=== PATIENT | male | born 1960 | race Caucasian/White ===

== ENCOUNTER 2024-10-07 17:21 | Inpatient (IN) | payer MEDICARE, SELFPAY ==
[2024-10-07] VITALS (26 sets, daily range): BP systolic 84–129; BP diastolic 59–96; BMI 33.5; BMI 33.3
--- NOTE | 2024-10-07 11:41 | ED.GENMED ---
ED Provider Triage
<Hemant Lanza PA-C - Last Filed: 10/07/24 11:45>
-
Patient seen by provider in Triage?: Seen in Triage
Attestation: A medical screening examination has been initiated by a qualified medical provider. Based on the assessment performed at this time, it has been determined that an emergent medical condition may exist and the patient has been informed
that further medical evaluation and possible additional diagnostic testing may be needed.
HPI: 64-year-old male presents to the emergency department for evaluation of shortness of breath for the past 3 days. Reports he has had a dry cough for the past week or more. No fevers or chills. Reports some chest tightness but denies any chest
pain. No leg swelling. Does have orthopnea and dyspnea on exertion.
GENERAL: Alert, clearly in respiratory distress
EYE: No visual abnormalities.
NECK: Trachea midline
ENT: No visible abnormalities.
LUNGS: Tachypneic with expiratory wheezes, no obvious adventitious lung sounds bilaterally
NEUROLOGICAL: Alert and oriented
SKIN: Skin intact. No visible changes.
MUSCULOSKELETAL: Moving extremities normally
PSYCH: Normal and appropriate interaction.
This is a medical evaluation conducted in person to initiate diagnostic evaluation and provide initial therapeutics. Please see further documentation by the treating clinician.
History of Present Illness
<Hemant Lanza PA-C - Last Filed: 10/07/24 11:45>
General
Chief Complaint: Breathing Problem
Time Seen by Provider: 10/07/24 13:34
<Mary Harrington PA-C - Last Filed: 10/07/24 18:07>
General
Source: patient
Exam Limitations: none
History of Present Illness
History of Present Illness:
64yoM with a history of hypertension, hyperlipidemia, and obesity presenting with his for evaluation of shortness of breath. He started with URI symptoms and cough 3-4 days ago. Cough is productive of green sputum. He also has been having
fevers up to 103 at home. was sick with similar symptoms but she is now feeling better after being started on prednisone. He reports increasing shortness of breath since his symptoms began. He was seen by his PCP today and was sent to the ED
for evaluation. He denies any history of asthma although smokes about 1 cigar daily.
Phy Exam
<Mary Harrington PA-C - Last Filed: 10/07/24 18:07>
General Physical Exam
General Presentation: mild distress
General age: appears stated age
General Skin: warm and dry
General Habitus: normal and obese
General Mental: alert
ENT Exam
ENT Exam: normocephalic
Cardiovascular Exam
Cardiovascular Exam: regular rate/rhythm and no edema
Pulmonary Exam
Pulmonary Exam: generalized wheezing and other (Diffuse expiratory wheezes noted with mild tachypnea)
Neurological Exam
Neurological Exam: alert
Stefani Coma Scale
Eye Opening: Spontaneous
Verbal Response: Oriented
Motor Response: Obeys Commands
GCS Total Score: 15
Skin Exam
Skin Exam: normal color and warm/dry
Psychiatric Exam
Psychiatric Exam: normal mood/affect
Scores
<Mary Harrington PA-C - Last Filed: 10/07/24 18:07>
Heart Failure Risk
Heart Failure Risk Score: Not Applicable
Sepsis
<Mary Harrington PA-C - Last Filed: 10/07/24 18:07>
Sepsis Screening
Sepsis Assessment: Sepsis Ruled Out
Sepsis Screen
Sepsis Screen: Sepsis Ruled Out
Date: 10/07/24
Time: 18:01
Course
<Hemant Lanza PA-C - Last Filed: 10/07/24 11:45>
Orders/Labs/Results
Orders:
Orders
10/07/24
Electrocardiogram (*1) Stat
Comment: ALREADY DONE
10/07/24 11:43
Electrocardiogram (*1) Urgent
Reason for Study: Shortness of Breath
EKG- Treatment ONCE
CR Chest - 2 Views Urgent
Comment:
Reason For Exam: SOB
10/07/24 12:02
Complete Blood Count/With Diff Urgent
Comprehensive Metabolic Panel Urgent
Magnesium Urgent
NT-proBNP Urgent
TSH Urgent
Comment: ADD ON
Troponin I Urgent
10/07/24 13:30
COVID-19 Antigen Urgent
Source: Nasal Swab
Influenza A+B Rapid Molecular Urgent
DALE Source: Nasal Swab
Specimen Description:
10/07/24 13:42
0.9% Sodium Chloride 500 ml [Nss] 500 ml IV BOLUS
Ipratropium/Albuterol Sulfate [Duoneb] 3 ml INH R NOW STA
10/07/24 13:52
D-Dimer Urgent
10/07/24 13:57
Adenosine [Adenocard] 6 mg IV NOW STA
10/07/24 13:59
Add On- LAB Urgent
Tests Added?: TSH, magnesium
10/07/24 14:03
Levalbuterol [Xopenex 1.25 mg Inhalant Solution] 1.25 mg INH R NOW STA
10/07/24 14:46
Troponin I Urgent
10/07/24 15:18
CT Chest PE Study Urgent
Comment:
Reason For Exam: SOB, hypoxia, elevated D-dimer
10/07/24 15:19
Magnesium Sulfate 2 Gram/50 ml [Magnesium Sulfate] 2 gram in 50 ml IV NOW
10/07/24 15:27
Oseltamivir Phosphate [Tamiflu] 75 mg PO NOW STA
10/07/24 17:06
Admit/Transfer Patient As Directed
Co-Sign Provider:
Level of Care: Inpatient admission
Assign to:: IVU
Physician / Group: Yi
Diagnosis: Acute influenza, SVT, Hypoxia
Reason for Hospitalization: Oxygen therapy, rate control, steroids
Expected length of stay greater than two midnights?: Yes
ELOS- Estimated Length of Stay in days: 3
I certify the patient meets the requirements for IP care: Yes
PRN Pain Medication Management As Directed
May give lesser potent ordered pain med per pt: Yes
preference::
Protocol:: Medication orders for pain may be administered in a
manner that supports deferring to patient preference
when the pt is:
- Requesting an ordered lesser potent pain medication.
Least to most potent pain medications are defined
as: acetaminophen < NSAID < tramadol < opioids
(morphine, oxycodone, hydromorphone).
- Requesting a lesser dose of the same medication IF
ORDERED.
- Requesting a less intrusive route of administration
if both routes are prescribed by the provider (PO <
IV).
10/07/24 17:07
Code Status As Directed
Resuscitation Status: Full Code
10/07/24 17:11
Dexamethasone Sod Phosphate [Decadron] 10 mg IV NOW STA
Diltiazem HCl [Cardizem] 10 mg IV NOW STA
10/07/24 17:12
0.9% Sodium Chloride 500 ml [Nss] 500 ml IV BOLUS
10/07/24 17:20
Azithromycin 500 mg/250 ml [Zithromax Infusion] 500 mg in 250 ml IV NOW
CefTRIAXone [Rocephin] 1,000 mg IV NOW STA
10/07/24 17:28
0.9% Sodium Chloride 1000 ml [Nss] 1,000 ml IV 100 mls/hr
Acetaminophen [Tylenol] 650 mg PO Q6HPRN PRN
Levalbuterol [Xopenex 0.63 mg Inhalant Solution] 0.63 mg INH R Q6HPRN PRN
10/07/24 17:28
CARDIOLOGY CONSULT Routine
Consulting Provider: Robin Matson
Was physician already notified: Yes
Activity As Directed
Activity Level: Out of Bed- Chair
Xopenex Reason for Use As Directed
Reason for ordering Xopenex instead of Albuterol: tachycardia
Acapella [Rx Pep / Acapela] [RESP] Routine
Incentive Spirometry [Rx Incentive Spirometry] [RESP] Routine
Frequency: q1h while awake
DX Deep Vein Thrombosis Video Routine
10/07/24 18:00
Diltiazem [Cardizem] 30 mg PO QID
Enoxaparin Sodium [Lovenox] 40 mg SC QPM
10/07/24 20:00
Guaifenesin [Mucinex] 600 mg PO Q12
Levalbuterol [Xopenex 0.63 mg Inhalant Solution] 0.63 mg INH R TID
omega 8-[id number]-[id number]-fish oil [Fish Oil] 1 cap PO BID
10/08/24 06:00
CBC/With Diff [Complete Blood Count/With Diff] IN AM
CMP [Comprehensive Metabolic Panel] IN AM
10/08/24 07:00
Dexamethasone Sod Phosphate [Decadron] 4 mg IV Q8H
10/08/24 08:00
Oseltamivir Phosphate [Tamiflu] 75 mg PO BID
Rosuvastatin Calcium [Crestor] 5 mg PO DAILY
10/08/24 18:00
Azithromycin 500 mg/250 ml [Zithromax Infusion] 500 mg in 250 ml IV Q24H
CefTRIAXone [Rocephin] 1,000 mg IV Q24H
Abnormal Lab Results
10/07/24 10/07/24 10/07/24
12:02 13:52 14:46
WBC 11.3 H 10^3/uL
(4.8-10.8)
MPV 11.2 H fL
(7.4-10.4)
Absolute Neuts (auto) 8.9 H 10^3/uL
(1.4-6.5)
Absolute Lymphs (auto) 1.0 L 10^3/uL
(1.2-3.4)
Absolute Monos (auto) 1.4 H 10^3/uL
(0.1-0.6)
Neutrophils % 78.6 H %
(42.2-75.2)
Lymphocytes % 8.6 L %
(20.5-51.1)
Monocytes % 12.1 H %
(1.7-9.3)
D-Dimer 1.58 H ug/mlFEU
(0.00-0.50)
BUN 31 H mg/dl
(9-20)
Creatinine 1.5 H mg/dL
(0.7-1.3)
Glucose 114 H mg/dl
(70-99)
Magnesium 2.5 H mg/dl
(1.6-2.3)
AST 62 H U/L
(17-59)
Troponin I 0.084 H* ng/ml 0.072 H* ng/ml
10/07/24 12:02
10/07/24 12:02
Vital Signs
Initial and Last Documented VS:
Initial Vital Signs
Temp Pulse Resp BP Pulse Ox
98.5 F 91 22 113/67 92
10/07/24 11:38 10/07/24 11:38 10/07/24 11:38 10/07/24 11:38 10/07/24 11:38
Last Documented Vital Signs
Temp Pulse Resp BP Pulse Ox
98.5 F 162 25 112/74 94
10/07/24 11:38 10/07/24 17:55 10/07/24 17:15 10/07/24 17:55 10/07/24 17:15
Breannalt;DELBERT Mendoza Last Filed: 10/07/24 18:07>
Orders/Labs/Results
Orders:
Orders
10/07/24
Electrocardiogram (*1) Stat
Comment: ALREADY DONE
10/07/24 11:43
Electrocardiogram (*1) Urgent
Reason for Study: Shortness of Breath
EKG- Treatment ONCE
CR Chest - 2 Views Urgent
Comment:
Reason For Exam: SOB
10/07/24 12:02
Complete Blood Count/With Diff Urgent
Comprehensive Metabolic Panel Urgent
Magnesium Urgent
NT-proBNP Urgent
TSH Urgent
Comment: ADD ON
Troponin I Urgent
10/07/24 13:30
COVID-19 Antigen Urgent
Source: Nasal Swab
Influenza A+B Rapid Molecular Urgent
DALE Source: Nasal Swab
Specimen Description:
10/07/24 13:42
0.9% Sodium Chloride 500 ml [Nss] 500 ml IV BOLUS
Ipratropium/Albuterol Sulfate [Duoneb] 3 ml INH R NOW STA
10/07/24 13:52
D-Dimer Urgent
10/07/24 13:57
Adenosine [Adenocard] 6 mg IV NOW STA
10/07/24 13:59
Add On- LAB Urgent
Tests Added?: TSH, magnesium
10/07/24 14:03
Levalbuterol [Xopenex 1.25 mg Inhalant Solution] 1.25 mg INH R NOW STA
10/07/24 14:46
Troponin I Urgent
10/07/24 15:18
CT Chest PE Study Urgent
Comment:
Reason For Exam: SOB, hypoxia, elevated D-dimer
10/07/24 15:19
Magnesium Sulfate 2 Gram/50 ml [Magnesium Sulfate] 2 gram in 50 ml IV NOW
10/07/24 15:27
Oseltamivir Phosphate [Tamiflu] 75 mg PO NOW STA
10/07/24 17:06
Admit/Transfer Patient As Directed
Co-Sign Provider:
Level of Care: Inpatient admission
Assign to:: IVU
Physician / Group: Yi
Diagnosis: Acute influenza, SVT, Hypoxia
Reason for Hospitalization: Oxygen therapy, rate control, steroids
Expected length of stay greater than two midnights?: Yes
ELOS- Estimated Length of Stay in days: 3
I certify the patient meets the requirements for IP care: Yes
PRN Pain Medication Management As Directed
May give lesser potent ordered pain med per pt: Yes
preference::
Protocol:: Medication orders for pain may be administered in a
manner that supports deferring to patient preference
when the pt is:
- Requesting an ordered lesser potent pain medication.
Least to most potent pain medications are defined
as: acetaminophen < NSAID < tramadol < opioids
(morphine, oxycodone, hydromorphone).
- Requesting a lesser dose of the same medication IF
ORDERED.
- Requesting a less intrusive route of administration
if both routes are prescribed by the provider (PO <
IV).
10/07/24 17:07
Code Status As Directed
Resuscitation Status: Full Code
10/07/24 17:11
Dexamethasone Sod Phosphate [Decadron] 10 mg IV NOW STA
Diltiazem HCl [Cardizem] 10 mg IV NOW STA
10/07/24 17:12
0.9% Sodium Chloride 500 ml [Nss] 500 ml IV BOLUS
10/07/24 17:20
Azithromycin 500 mg/250 ml [Zithromax Infusion] 500 mg in 250 ml IV NOW
CefTRIAXone [Rocephin] 1,000 mg IV NOW STA
10/07/24 17:28
0.9% Sodium Chloride 1000 ml [Nss] 1,000 ml IV 100 mls/hr
Acetaminophen [Tylenol] 650 mg PO Q6HPRN PRN
Levalbuterol [Xopenex 0.63 mg Inhalant Solution] 0.63 mg INH R Q6HPRN PRN
10/07/24 17:28
CARDIOLOGY CONSULT Routine
Consulting Provider: Robin Matson
Was physician already notified: Yes
Activity As Directed
Activity Level: Out of Bed- Chair
Xopenex Reason for Use As Directed
Reason for ordering Xopenex instead of Albuterol: tachycardia
Acapella [Rx Pep / Acapela] [RESP] Routine
Incentive Spirometry [Rx Incentive Spirometry] [RESP] Routine
Frequency: q1h while awake
DX Deep Vein Thrombosis Video Routine
10/07/24 18:00
Diltiazem [Cardizem] 30 mg PO QID
Enoxaparin Sodium [Lovenox] 40 mg SC QPM
10/07/24 20:00
Guaifenesin [Mucinex] 600 mg PO Q12
Levalbuterol [Xopenex 0.63 mg Inhalant Solution] 0.63 mg INH R TID
omega 0-uie-[id number]-fish oil [Fish Oil] 1 cap PO BID
10/08/24 06:00
CBC/With Diff [Complete Blood Count/With Diff] IN AM
CMP [Comprehensive Metabolic Panel] IN AM
10/08/24 07:00
Dexamethasone Sod Phosphate [Decadron] 4 mg IV Q8H
10/08/24 08:00
Oseltamivir Phosphate [Tamiflu] 75 mg PO BID
Rosuvastatin Calcium [Crestor] 5 mg PO DAILY
10/08/24 18:00
Azithromycin 500 mg/250 ml [Zithromax Infusion] 500 mg in 250 ml IV Q24H
CefTRIAXone [Rocephin] 1,000 mg IV Q24H
Abnormal Lab Results
10/07/24 10/07/24 10/07/24
12:02 13:52 14:46
WBC 11.3 H 10^3/uL
(4.8-10.8)
MPV 11.2 H fL
(7.4-10.4)
Absolute Neuts (auto) 8.9 H 10^3/uL
(1.4-6.5)
Absolute Lymphs (auto) 1.0 L 10^3/uL
(1.2-3.4)
Absolute Monos (auto) 1.4 H 10^3/uL
(0.1-0.6)
Neutrophils % 78.6 H %
(42.2-75.2)
Lymphocytes % 8.6 L %
(20.5-51.1)
Monocytes % 12.1 H %
(1.7-9.3)
D-Dimer 1.58 H ug/mlFEU
(0.00-0.50)
BUN 31 H mg/dl
(9-20)
Creatinine 1.5 H mg/dL
(0.7-1.3)
Glucose 114 H mg/dl
(70-99)
Magnesium 2.5 H mg/dl
(1.6-2.3)
AST 62 H U/L
(17-59)
Troponin I 0.084 H* ng/ml 0.072 H* ng/ml
10/07/24 12:02
10/07/24 12:02
Vital Signs
Initial and Last Documented VS:
Initial Vital Signs
Temp Pulse Resp BP Pulse Ox
98.5 F 91 22 113/67 92
10/07/24 11:38 10/07/24 11:38 10/07/24 11:38 10/07/24 11:38 10/07/24 11:38
Last Documented Vital Signs
Temp Pulse Resp BP Pulse Ox
98.5 F 162 25 112/74 94
10/07/24 11:38 10/07/24 17:55 10/07/24 17:15 10/07/24 17:55 10/07/24 17:15
<Mary Harrington PA-C - Last Filed: 10/07/24 18:07>
MDM/Problems Addressed
Differential Diagnosis Includes:
64yoM here with flu-like symptoms and SOB x several days. Oxygen saturation 92% in triage although patient is on 2L NC on initial exam. Expiratory wheezes noted. Differential diagnosis includes but is not limited to: viral illness, pneumonia, COPD
exacerbation, ACS, PE
Initial ED plan: Cardiac labs and EKG obtained in triage. EKG shows NSR without ischemic changes although troponin is elevated at 0.082. BNP 955. CXR is clear without infiltrates. Will add on viral testing and D-dimer. Xopenex neb and IV fluid
bolus.
<Mary Harrington PA-C - Last Filed: 10/07/24 18:07>
*EKG
Interpreted by ED Provider?: Yes
EKG Intrepretation Date: 10/07/24
Heart Rate: 96
Rate: normal
Rhythm: sinus and PVC's
[place]: normal axis
Interval: normal interval
QRS Pattern: normal QRS
Ischemia: no ischemia
*Critical Care Note
Total Time (30-74mins, 75-104mins- exclusive of procedures): Not Applicable
<Mary Harrington PA-C - Last Filed: 10/07/24 18:07>
Update Note
Update Note:
After initial assessment, patient noted to have tachycardia on the monitor with HR in the 160-170s. EKG obtained which is consistent with SVT. Adenosine ordered but was not given as patient spontaneously converted to NSR. Episode lasted a few
minutes. Patient noted to have intermittent bouts of tachycardia throughout ED stay but episodes always resolve without medications. 2mg IV magnesium ordered.
Patient positive for influenza A. D-dimer elevated and CTA subsequently ordered. Tamiflu given and patient admitted for further management. CT results pending at time of admission.
ED Attending Note
<Hemant Lanza PA-C - Last Filed: 10/07/24 11:45>
-
Portions of this chart may have been created with voice recognition software.� Occasional wrong word or��sound alike� substitutions may have occurred due to the inherent limitations of voice recognition software.
Discharge Plan
Departure
Patient Disposition: Admit
Date of Disposition: 10/07/24
Time of Disposition: 16:04
Presentation/result/management discussed w/ accepting MD/DO: Hospitalist
Discharge Problem:
Influenza A, Acute hypoxic respiratory failure, Elevated troponin, Paroxysmal SVT (supraventricular tachycardia)
Interventions
Interventions:
*Risk Screen - Suicide Last Done: 10/07/24 11:38
*General Assessment Last Done: 10/07/24 11:38
*Neglect/Abuse Screening Last Done: 10/07/24 11:38
ED- Fall Risk Assessment Last Done: 10/07/24 13:27
*ED COVID-19 Vaccine History Last Done: 10/07/24 13:24
ED- Cardiac Assessment Last Done: 10/07/24 13:24
ED- Pulmonary Assessment Last Done: 10/07/24 13:24
[2024-10-07 12:11] LABS: % Basophils 0.3 % (0-2); % Eosinophils 0.1 % (0-6); % Immature Granulocytes 0.3 % (0-0.5); % Lymphocytes 8.6 % (20.5-51.1); % Monocytes 12.1 % (1.7-9.3); % Neutrophils 78.6 % (42.2-75.2); Absolute Monocytes 1.4 10^3/uL (0.1-0.6); Absolute Neutrophils 8.9 10^3/uL (1.4-6.5); Hematocrit 44.5 % (39.0-52.0); Mean Corp Hgb Conc. 33.7 g/dL (33.0-37.0); Mean Corpuscular Hgb 29.8 pg (27.0-31.0); Mean Corpuscular Volume 88.5 fL (80.0-94.0); Mean Platelet Volume 11.2 fL (7.4-10.4); Nucleated Red Blood Cells % 0 % (-); Platelet Count 151 10^3/uL (130-400); Red Blood Cell Count 5.03 10^6/uL (4.70-6.10); Red Cell Dist. Width 14.5 % (11.5-14.5); White Blood Cell Count 11.3 10^3/uL (4.8-10.8)
[2024-10-07 12:25] LABS: ALT (SGPT) 35 U/L (0-50); AST (SGOT) 62 U/L (17-59); Albumin 4.2 g/dl (3.5-5.0); Alkaline Phosphatase 85 U/L (38-126); Blood Urea Nitrogen 31 mg/dl (9-20); Calcium 8.4 mg/dl (8.4-10.2); Carbon Dioxide 22 mmol/L (22-30); Chloride 101 mmol/L (98-107); Glucose 114 mg/dl (70-99); Sodium 135 mmol/L (135-145); Total Bilirubin 0.6 mg/dl (0.2-1.3); eGFR 51.03
[2024-10-07 12:40] LABS: Troponin I 0.084 ng/ml
[2024-10-07 13:12] LABS: NT-proBNP 995 pg/ml
[2024-10-07] MEDS: NSS 500 IV ×2 (13:54→18:03)
[2024-10-07 14:05] LABS: COVID-19 Antigen Negative (Negative)
[2024-10-07 14:16] LABS: D-Dimer 1.58 ug/mlFEU (0.00-0.50)
[2024-10-07] MEDS: XOPENEX 1.25 MG INHALANT SOLUTION INH (14:28)
[2024-10-07 15:05] LABS: TSH 2.75 uIU/ml (0.47-4.68)
[2024-10-07] MEDS: MAGNESIUM SULFATE 50 IV (15:22)
[2024-10-07 15:30] LABS: Troponin I 0.072 ng/ml
[2024-10-07] MEDS: TAMIFLU 75 MG PO (16:25)
[2024-10-07 16:28] LABS: Magnesium 2.5 mg/dl (1.6-2.3)
--- NOTE | 2024-10-07 17:13 | HPS.HSE ---
Family Physician
-
Family Physician: Suzan Gómez, DO
Chief Complaint
-
Cough, shortness of breath
History of Present Illness
64-year-old male here complaining of cough and shortness of breath for the past 3 days. His apparently had the same illness and recovered. She tested negative for COVID and influenza.
Patient tested in the emergency room and found to be influenza A positive.
Denies fevers or chills. Has a cough productive of green phlegm.
Denies palpitations or chest pain.
Medical History
Past Medical History
Past Medical History: Reports Other
Additional Past Medical History:
Essential hypertension
Hyperlipidemia
Past Surgical History: Reports None
Social History
Tobacco: Smoker
Alcohol: Occasional
Drug: None
Personal:
Living: With Family
Employment: Retired
Family History
Family History: Not pertinent
Allergies / Home Medications
Allergies reflects when Allergies were last updated in [employer].
Home Medications with original date entered in [employer]
Allergy/Medication List:
Allergies
Allergy/AdvReac Type Severity Reaction Status Date / Time
No Known Allergies Allergy Verified 10/07/24 11:42
Home Medications
losartan 100 mg tablet 100 mg PO DAILY 10/07/24
omega 7-ujq-psb-fish oil 1,000 mg (120 mg-180 mg) capsule (Fish Oil) 1 cap PO BID 10/07/24
rosuvastatin 5 mg tablet 5 mg PO DAILY 10/07/24
Review of Systems
-
History Source: Patient and Family
A 12 point ROS was completed and negative except as noted: Yes
Physical Exam
Vital Signs
Vital Signs
Temp Pulse Resp BP Pulse Ox
98.5 F 89 23 104/59 92
10/07/24 11:38 10/07/24 15:45 02/04/25 15:45 10/07/24 15:00 10/07/24 15:45
Physical Exam
General: Well Developed, Well Nourished, No Apparent Distress and Comfortable
HEENT: NormoCephalic, Anicteric and Moist mucous membranes
Respiratory: Wheezes
Cardiac: S1/S2, Regular Rhythm and Tachycardia
GI: Soft, Non Tender and Non Distended
Musculoskeletal: No Clubbing, No Cyanosis and No Edema
Skin: Warm and Dry
Neuro: AO x 3
Hematologic/Lymphatic: No Lymphadenopathy
Psych: Calm
Laboratory Results
-
10/07/24 12:02
10/07/24 12:02
Laboratory Results
Total Bilirubin 0.6 mg/dl (0.2-1.3) 10/07/24 12:02
AST 62 U/L (17-59) H 10/07/24 12:02
ALT 35 U/L (0-50) 10/07/24 12:02
Alkaline Phosphatase 85 U/L (38-126) 10/07/24 12:02
Troponin I 0.072 ng/ml H* 10/07/24 14:46
Impression/Plan
-
Acute hypoxic respiratory insufficiency -due to acute influenza A infection, pneumonia. Pulse ox in the 80% range on room air. Admit to IVU.
Sepsis - due to pneumonia, acute influenza infection. IV fluids and antibiotics ordered. Check cultures. Hypotensive in the emergency room down to 84/61, improved to 112/74 with IV fluid administration.
Acute influenza A infection - start Tamiflu. Clinically appears to have acute COPD exacerbation. Does not formally have a diagnosis of COPD. Expiratory wheezing noted on exam bilaterally. With his smoking history I suspect he has underlying
undiagnosed emphysema. Will need outpatient evaluation and follow-up with pulmonary. Start systemic steroids. Continue inhalers. Add Mucinex, Acapella, incentive spirometry.
Community-acquired pneumonia -CT chest shows left lower lobe infiltrate. Chest x-ray without findings. Check blood cultures. Check urinary antigens. Start empiric antibiotics.
Acute kidney injury - suspect due to anorexia related volume depletion. IV fluids ordered. Hold losartan.
SVT -likely triggered by acute illness. Start Cardizem. Avoid beta-blockers given active wheezing. Consult cardiology. TSH normal.
Troponin elevation -likely acute nonischemic myocardial injury due to acute illness. Troponin trending down.
Essential hypertension -relative hypotension noted. Suspect volume depletion, sepsis. IV fluids are ordered. Hold losartan.
Hyperlipidemia -on rosuvastatin.
Tobacco dependence
Obesity due to excess calories
Full code
updated at the bedside.
[2024-10-07] MEDS: CARDIZEM 10 MG IV (17:55)
[2024-10-07] MEDS: DECADRON 10 MG IV (17:58)
[2024-10-07] MEDS: ROCEPHIN 1000 MG IV (18:01)
[2024-10-07] MEDS: LOVENOX 40 MG SC (18:04)
[2024-10-07] MEDS: ZITHROMAX INFUSION 250 IV (18:04)
[2024-10-07] MEDS: CARDIZEM PO (18:07)
[2024-10-07] MEDS: CARDIZEM 30 MG PO ×2 (18:32→18:55)
[2024-10-07] MEDS: OFIRMEV 100 IV (19:33)
--- NOTE | 2024-10-07 19:48 | W.PN.UPDATE ---
Update Note
Progress Note Update
Patient is febrile, hr 160s sustaining, bp 121/80. Denies chest pain.
Cardizem 5 mg IV bolus/ Cardizem drip, hr back to NSR
around 2 am
Pauses up to 4.9 sec asymptomatic, bp 118/69, hr 60s, 94% on 4 L. Patient currently off Cardizem drip.
possible sleep apnea? due to obesity. at bedside who mentioned possibility of sleep apnea per nursing staff.
Will order CPAP at the mean time and update cardiology.
[2024-10-07] MEDS: CARDIZEM 125 IV (19:53)
[2024-10-07] MEDS: MUCINEX 600 MG PO (20:10)
[2024-10-07] MEDS: CARDIZEM 5 MG IV (20:15)
[2024-10-07] MEDS: NSS IV (20:21)
[2024-10-07] MEDS: XOPENEX 0.63 MG INHALANT SOLUTION INH (20:34)
--- NOTE | 2024-10-07 21:50 | PTCARENOTE ---
Addendum entered by Jaspal Romano RN 10/08/24 00:36:
Rec'd pt as transfer at change of shift. Pt with HR in the 160's, pt denies cp or palpitations. EKG obtained showing sinus tach and confirms HR in the 160's. DR Tay notified and differed to hosp provider. S[employer]IOR MARKETING [employer]LYST house provider aware and ordered
IV Tylenol, IV Cardizem infusion, and Cardizem bolus. All infusions given as ordered. Pt also with elevated temperature at 100.4, 93% on 4L of oxygen, BP 121/80. PT KOVACS and respiratory treatment provided by respiratory.
Pt AAO*3 and continues on TELE monitoring. Pt agreed to reports any new pain, chest pain , fluttering, or palpitations. Cardizem remains infusing as ordered. Pt agreed to bedrest until tachycardia stabilizes. Pt placed on droplet precautions and
influenza A positive.
Admission complete. Pt oriented to unit. Pt resting with call velazquez in reach. Plan of care ongoing. No further questions or concerns from pt at this time. at bedside with pt
See MAR and pt flowchart for full assessment and pt care.
Original Note:
Rec'd pt as transfer at change of shift. Pt with HR in the 160's, pt denies cp or palpitations. EKG obtained showing sinus tach and confirms HR in the 160's. DR Tay notified and differed to hosp provider. SENIOR MARKETING ANALYST house provider aware and ordered
IV Tylenol, IV Cardizem infusion, and Cardizem bolus. All infusions given as ordered. Pt also with elevated temperature at 100.4, 93% on 4L of oxygen, BP 121/80. PT KOVACS and respiratory treatment provided by respiratory.
Pt AAO*3 and continues on TELE monitoring. Pt agreed to reports any new pain, chest pain , fluttering, or palpitations. Cardizem remains infusing as ordered. Pt agreed to bedrest until tachycardia stabilizes. Pt placed on droplet precautions and
influenza A positive.
Admission complete. Pt oriented to unit. Pt resting with call velazquez in reach. Plan of care ongoing. No further questions or concerns from pt at this time. at bedside with pt
[2024-10-08] VITALS (13 sets, daily range): BP systolic 99–141; BP diastolic 59–94; BMI 33.3
--- NOTE | 2024-10-08 00:34 | PTCARENOTE ---
Pt currently on TELE monitor in aflutter and SR at times, HR 80-90's. Cardizem gtt infusing. Pt denies any pain or discomfort. Pt resting with call velazquez in reach. Plan of car ongoing. See MAR and flowchart for full pt assessment and care.
[2024-10-08] MEDS: NSS 1000 IV (02:09)
[2024-10-08 02:30] LABS: % Basophils 0.1 % (0-2); % Immature Granulocytes 0.5 % (0-0.5); % Lymphocytes 9.2 % (20.5-51.1); % Monocytes 6.9 % (1.7-9.3); % Neutrophils 83.3 % (42.2-75.2); Absolute Lymphocytes 0.8 10^3/uL (1.2-3.4); Absolute Monocytes 0.6 10^3/uL (0.1-0.6); Hematocrit 41.9 % (39.0-52.0); Hemoglobin 13.8 g/dL (13.0-18.0); Mean Corp Hgb Conc. 32.9 g/dL (33.0-37.0); Mean Corpuscular Hgb 29.2 pg (27.0-31.0); Mean Corpuscular Volume 88.8 fL (80.0-94.0); Nucleated Red Blood Cells % 0 % (-); Platelet Count 164 10^3/uL (130-400); Red Blood Cell Count 4.72 10^6/uL (4.70-6.10); Red Cell Dist. Width 14.4 % (11.5-14.5); White Blood Cell Count 8.5 10^3/uL (4.8-10.8)
--- NOTE | 2024-10-08 02:42 | PTCARENOTE ---
TELE monitor shows pt with 4.9 second pause at 0130, then converting to NSR. Cardizem gtt immediately taken off. LAMONT Berman notified. EKG obtained showing pt in NSR. BP 118/69, 94% on 4L, and TELE monitoring continues showing pt in 60's SR.
Pt denies any feeling of the heart pause and was found to be resting in bed at time of heart pause and responsive to verbal stimuli, AAO*3. Pt updated and now resting with call velazquez in reach. Plan of care ongoing.
[2024-10-08 02:59] LABS: ALT (SGPT) 34 U/L (0-50); AST (SGOT) 52 U/L (17-59); Albumin 3.5 g/dl (3.5-5.0); Alkaline Phosphatase 79 U/L (38-126); Blood Urea Nitrogen 28 mg/dl (9-20); Calcium 8.3 mg/dl (8.4-10.2); Carbon Dioxide 23 mmol/L (22-30); Chloride 104 mmol/L (98-107); Estimated Creatinine Clearance 85 ml/min; Glucose 137 mg/dl (70-99); Magnesium 2.7 mg/dl (1.6-2.3); Potassium 4.6 mmol/L (3.5-5.1); Sodium 136 mmol/L (135-145); Total Bilirubin 0.5 mg/dl (0.2-1.3); Total Protein 5.8 g/dl (6.3-8.2); eGFR > 60.00
[2024-10-08] MEDS: XOPENEX 0.63 MG INHALANT SOLUTION INH ×3 (07:21→20:11)
--- NOTE | 2024-10-08 08:25 | W.PN.HOSP.TC ---
Today's Communication/Plan
-
Cardiology consult
Continue antibiotics
Tamiflu
Steroids
Wean oxygen as able
Assessment / Plan
Assessment / Plan
Gen-AAOx3, NAD
HEENT-NC, AT, anicteric, clear oral mm
Neck-supple
CV-reg, no M, +S1/S2
Lungs-wheezing improved
Abd-soft, NT, ND
Ext-no edema
Musculoskeletal-no cyanosis, clubbing
Skin-warm and dry
Neuro-grossly non-focal
Psych-calm, cooperative
Acute hypoxic respiratory insufficiency -due to acute influenza A infection, pneumonia. Currently stable on 3 L nasal cannula oxygen, wean down as able.
Sepsis - due to pneumonia, acute influenza infection. Hemodynamically improved with IV fluids.
Acute influenza A infection -continue Tamiflu. Clinically appears to have acute COPD exacerbation. Does not formally have a diagnosis of COPD. Expiratory wheezing noted on exam bilaterally. With his smoking history I suspect he has underlying
undiagnosed emphysema. Will need outpatient evaluation and follow-up with pulmonary. Continue Decadron IV. Continue inhalers. Continue Mucinex, Acapella, incentive spirometry.
Community-acquired pneumonia -CT chest shows left lower lobe infiltrate. Chest x-ray without findings. Check blood cultures. Urinary antigens negative. Continue antibiotics.
Acute kidney injury - suspect due to anorexia related volume depletion. Creatinine improved.
SVT -likely triggered by acute illness. Currently on Cardizem drip and oral Cardizem with improved heart rate. Avoid beta-blockers given active wheezing. Consult cardiology. TSH normal.
Troponin elevation -likely acute nonischemic myocardial injury due to acute illness. Troponin trending down.
Essential hypertension -blood pressure improving. Hold losartan.
Hyperlipidemia -on rosuvastatin.
Tobacco dependence
Obesity due to excess calories
Full code
updated at the bedside.
Anticipated Discharge: 24 - 48 hours
Subjective/Interval History
-
Date of Service: October 08, 2024
Patient seen and examined. Feeling better. Less short of breath. Appetite improving. No complaints.
Objective Data
-
Labs:
Laboratory Results
10/08/24 10/08/24
02:04 06:00
WBC 8.5 Pending
Hgb 13.8 Pending
Hct 41.9 Pending
Plt Count 164 Pending
Sodium 136
Potassium 4.6
Chloride 104
Carbon Dioxide 23
BUN 28 H
Creatinine 1.1
Glucose 137 H
Calcium 8.3 L
Total Bilirubin 0.5
AST 52
ALT 34
Alkaline Phosphatase 79
Vital Signs:
Vital Signs
Temp Pulse Resp BP Pulse Ox
97.8 F 66 20 106/82 95
10/08/24 08:13 10/08/24 08:15 10/08/24 08:13 10/08/24 08:11 10/08/24 08:13
I&O
10/07/24 10/08/24 10/09/24
06:59 06:59 06:59
Intake Total 960 / 960
Output Total 800 / 800
Balance 160 / 160
Review of Systems
-
History Source: Patient
All other systems: Reviewed and negative
--- NOTE | 2024-10-08 08:30 | PTCARENOTE ---
Assumed care of pt from prev nsg shift; Pt AAO3 w/no c/o CP. Pt is SOB r/t to flu diagnosis & is 95% on 3L O2 via NC. Resp in to see pt & give sched breathing treatment. Pt's VS stable w/HR in the 70's at rest & BP 106/[address] w/HRF in the
140's-150's during resp treatments. Pt is on Droplet precautions for the flu. Pt w/call velazquez within reach 7 plan of car3e ongoing.
--- NOTE | 2024-10-08 08:39 | CON.CAR ---
Addendum entered and electronically signed by Elijah Medrano DO 10/08/24 11:01:
I saw and examined the patient.
The Escalator Mechanic's note was reviewed and I agree with the note.
Comment:
Plan:
Cont rate control with IV Cardizem and transition to oral Cardizem from 30 mg QID to 60 mg TID and eventual transition to Cardizem CD 120 mg likely next 24 hrs.
Avoid beta gabbie with active wheezing
Cont Eliquis
Could consider Amiodarone if needed for short course to help maintain rhythm
Ultimately rhythm control therapy for recurrence would be PVI.
Echo pending.
Cont med tx of nonMI trop.
Consider outpt stress testing once recovered from Flu
Cont tx for flu as per primary service
Original Note:
Consultation
Consultation Request
Date/Time Consultation Performed: 10/08/24
Requesting Provider: Dr. Coleman
Performing Provider: Dawna Davis PA-C for Dr. Medrano
Reason for Consultation: SVT
Medical History
-
Chief Complaint: SOB
History of Present Illness:
Patient is a 64-year-old male with past medical history of hypertension, hyperlipidemia who presented to [facility] emergency room for evaluation of shortness of breath. He had fevers of up to 103. He felt as though he was wheezing. He
tested positive for Influenza A and was admitted and started on Tamiflu. While in the emergency room he was noted to have multiple episodes of tachycardia, which by EKG appear to be consistent with a flutter. He was started on IV Cardizem and
spontaneously converted to sinus rhythm around 2 AM, however around 8 AM has had several paroxysms of A-fib/a flutter with RVR. Cardiology consulted for evaluation. He reports he is feeling better today than yesterday. Denies chest pain.
PMH:
HTN
HLD
Ongoing tobacco use (1 cigar daily)
Past Medical History
Past Medical History: Other (in HPI)
Social History
Tobacco: Smoker (1 cigar daily)
Alcohol: Occasional
Personal:
Living: With Family
Employment: Retired
Family History
Family History: Other (aneurysm in father)
Allergies / Home Medications
Allergy/AdvReac Type Severity Reaction Status Date / Time
No Known Allergies Allergy Verified 10/07/24 11:42
�Medication �Instructions �Recorded �Confirmed �Type
losartan 100 mg tablet 100 mg PO DAILY 10/07/24 10/07/24 History
omega 2-dtm-ses-fish oil 1,000 mg 1 cap PO BID 10/07/24 10/07/24 History
(120 mg-180 mg) capsule (Fish Oil)
rosuvastatin 5 mg tablet 5 mg PO DAILY 10/07/24 10/07/24 History
Review of Systems
-
History Source: Patient and Family
All other systems: Negative unless noted
Physical Exam
Vital Signs
Temp Pulse Resp BP Pulse Ox
97.8 F 66 20 106/82 95
10/08/24 08:13 10/08/24 08:15 10/08/24 08:13 10/08/24 08:11 10/08/24 08:13
Lab Results
10/08/24 02:04
Troponin I 0.072 ng/ml H* 10/07/24 14:46
Sfe-E-Dkuovdpdzic Pept 995 pg/ml 10/07/24 12:02
Physical Exam
General: No Apparent Distress, Comfortable and Other (on supp O2. mild tachypnea)
HEENT: Normocephalic, Anicteric and Moist Mucous Membranes
Respiratory: Wheezes (expiratory B/L)
Cardiac: S1/S2 and Irregular Rhythm
GI: Soft, Non Tender, Non Distended and Normal Bowel Sounds
Musculoskeletal: No Clubbing, No Cyanosis and No Edema
Skin: Warm and Dry
Neuro: AO x 3
Impression / Plan
-
Primary Utilization Management Um Nurse: none prior to admission
Assessment:
Presentation with SOB/cough/fever
Acute Influenza A +
Sepsis
PNA
TAYLOR
Paroxysmal atrial flutter/atrial fibrillation, new diagnosis of unclear duration, with ~5 second conversion pause
Elevated troponin, suspect nonischemic myocardial injury secondary to above
HTN
HLD
Ongoing tobacco use (1 cigar daily)
Obesity
ECHO 10/08/24: pending
Plan:
-Patient presented with shortness of breath, cough, fever and has tested positive for influenza A. Also has evidence of pneumonia by chest CT.
-continue abx, tamiflu, steroids per primary service.
-wean supp O2 as able
-While in ER patient noted to have multiple episodes of rapid heart rate. by review of EKGs in ER, appears most consistent with aflutter. she spontaneously converted to SR with ~5 second conversion pause and IV cardizem gtt was stopped at that time.
remained in SR until resp treatment this morning and since has been in and out of afib since without noted conversion pauses on review of tele. duonebs discontinued, transitioned to xopenex. will repeat EKG now as appears to be afib currently.
-currently on short acting cardizem 30mg QID, consider transition to cardizem cd. avoiding BB with active wheezing
-may require AAD if remains paroxysmal. hopefully arrhythmia will resolve as patient improves from respiratory standpoint
-[id number] score of 2 for age, HTN. we discussed OAC, will plan to start eliquis 5mg BID
-check echo
-TSH WNL
-OP losartan on hold due to TAYLOR on presentation, now improved after IVF - Cr 1.1 on 10/08.
-trop peaked at 0.084 and trending down. no CP. would consider for OP ischemic evaluation once recovered
-d/w patient and at bedside
-d/w hospitalist
Data Reviewed
-
EKG: Tracing Personally Visualized and interpreted
CT Scan: Report Reviewed by me
Labs: Labs Reviewed by me
Old Records: Reviewed
--- NOTE | 2024-10-08 10:29 | CM ---
Chart reviewed. Patient is independent of ADLS, lives with his in a split level home, 0 IVANIA, 0 DME. Plan is for the patient to return home. CM to follow
[2024-10-08] MEDS: MUCINEX 600 MG PO ×2 (10:43→19:05)
[2024-10-08] MEDS: DECADRON 4 MG IV ×3 (10:43→22:53)
[2024-10-08] MEDS: CRESTOR 5 MG PO (10:43)
[2024-10-08] MEDS: ELIQUIS 5 MG PO ×2 (10:43→19:05)
[2024-10-08] MEDS: CARDIZEM 30 MG PO (10:43)
[2024-10-08] MEDS: TAMIFLU 75 MG PO ×2 (10:43→19:05)
--- NOTE | 2024-10-08 14:35 | CM ---
Addendum entered by Elaine Neville RN 10/09/24 12:05:
Patient is agreeable to cost
Original Note:
Pricing on Eliquis through the patient's [employer] prescription plan is $560 for the first month. The patient has a $590 deductible. Then it will cost the patient $206 until he reaches the catastrophic stage which is $0 co pay. I will place
a free 30 day coupon in the patient's red discharge folder.
[2024-10-08] MEDS: CARDIZEM 60 MG PO ×2 (17:31→22:53)
[2024-10-08] MEDS: STERILE WATER FOR INJECTION 10 ML IV (17:32)
[2024-10-08] MEDS: ROCEPHIN 1000 MG IV (17:32)
[2024-10-08] MEDS: FLUSH (NSS) 4 FLUSH IV (17:32)
[2024-10-08] MEDS: ZITHROMAX INFUSION 250 IV (17:33)
--- NOTE | 2024-10-08 20:12 | PTCARENOTE ---
Received patient at change of shift. Afib on the monitor, HR in the 100-130s. 96% on 4L nasal cannula. No complaints from pt at this time, call velazquez within reach.
[2024-10-09] VITALS (7 sets, daily range): BP systolic 119–142; BP diastolic 71–107
--- NOTE | 2024-10-09 02:00 | PTCARENOTE ---
received pt from [facility]. Walking rounds completed. Pt assessment completed in bed. Pt is AAOx4, no neuro deficits noted. Afib on monitor. HR 142, B/P 126/71. Pulses palpable, generalized trace edema. lungs coarse, diminished, productive cough. POX
98% on 3L I/S: 1999. NBS, abdomen round, non-tender to touch. Pt voiding clear, yellow urine in bathroom. R AC and L wrist PVA all intact and flush. Discussed plan of care with pt. Pt agrees with plan. Will continue to monitor pt needs.
[2024-10-09] MEDS: XOPENEX 0.63 MG INHALANT SOLUTION INH ×3 (07:58→19:25)
[2024-10-09] MEDS: CRESTOR 5 MG PO (08:30)
[2024-10-09] MEDS: MUCINEX 600 MG PO ×2 (08:30→20:39)
[2024-10-09] MEDS: CARDIZEM 60 MG PO (08:30)
[2024-10-09] MEDS: ELIQUIS 5 MG PO ×2 (08:30→20:39)
[2024-10-09] MEDS: DECADRON 4 MG IV (08:31)
[2024-10-09] MEDS: TAMIFLU 75 MG PO ×2 (08:31→20:40)
--- NOTE | 2024-10-09 08:44 | W.PN.HOSP.TC ---
Today's Communication/Plan
-
Stop Decadron
Prednisone
Continue antibiotics, Tamiflu
Wean oxygen as able
Assessment / Plan
Assessment / Plan
Gen-AAOx3, NAD
HEENT-NC, AT, anicteric, clear oral mm
Neck-supple
CV-reg, no M, +S1/S2
Lungs-wheezing improved
Abd-soft, NT, ND
Ext-no edema
Musculoskeletal-no cyanosis, clubbing
Skin-warm and dry
Neuro-grossly non-focal
Psych-calm, cooperative
Acute hypoxic respiratory insufficiency -due to acute influenza A infection, pneumonia. Currently stable on 3 L nasal cannula oxygen, wean down as able.
Sepsis - due to pneumonia, acute influenza infection. Hemodynamically improved with IV fluids. Blood cultures negative.
Acute influenza A infection -continue Tamiflu, has received 4 out of 10 doses. Clinically appears to have acute COPD exacerbation. Does not formally have a diagnosis of COPD. Wheezing improved. With his smoking history I suspect he has
underlying undiagnosed emphysema. Will need outpatient evaluation and follow-up with pulmonary. Will change to prednisone. Continue inhalers. Continue Mucinex, Acapella, incentive spirometry.
Community-acquired pneumonia -CT chest shows left lower lobe infiltrate. Chest x-ray without findings. Urinary antigens negative. Continue antibiotics.
Acute kidney injury - suspect due to anorexia related volume depletion. Creatinine improved.
Rapid atrial fibrillation -new diagnosis and likely triggered by acute illness. cardiology following. Currently on Cardizem 60 mg p.o. 3 times daily but heart rate still fast. Eliquis started.
Troponin elevation -likely acute nonischemic myocardial injury due to acute illness. Troponin trending down.
Essential hypertension -blood pressure improving. Hold losartan.
Hyperlipidemia -on rosuvastatin.
Tobacco dependence
Obesity due to excess calories
Full code
Anticipated Discharge: 24 - 48 hours
Subjective/Interval History
-
Date of Service: October 09, 2024
Patient seen and examined. Overall feeling better, less dyspneic on exertion.
Objective Data
-
Vital Signs:
Vital Signs
Temp Pulse Resp BP Pulse Ox
97.7 F 126 20 125/104 95
10/09/24 08:09 10/09/24 08:30 10/09/24 08:09 10/09/24 08:30 10/09/24 08:37
I&O
10/08/24 10/09/24 10/10/24
06:59 06:59 06:59
Intake Total 960 / 960 2480 / 2480 400 / 400
Output Total 800 / 800
Balance 160 / 160 2480 / 2480 400 / 400
Review of Systems
-
History Source: Patient
All other systems: Reviewed and negative
[2024-10-09] MEDS: DELTASONE 40 MG PO (10:46)
--- NOTE | 2024-10-09 11:13 | W.PN.CARDCBS ---
Addendum entered and electronically signed by Thong Steven MD 10/09/24 15:39:
I saw and examined the patient.
The Earth Science Teacher's note was reviewed and I agree with the note.
Comment: Briefly, 64-year-old man presenting with shortness of breath cough and fever found to be influenza positive and found to be in atrial fibrillation with rapid ventricular response for which cardiology is consulted
Paroxysms of rapid atrial fibrillation throughout his hospitalization and is back in atrial fibrillation today
In the setting of acute infection would recommend rate control strategy
Continue Cardizem for goal heart rate less than 110 bpm
Can follow-up as an outpatient to discuss rhythm control - reviewed PVI as an option in the future
Continue Eliquis for cardioembolic prophylaxis
Discussed with patient and at bedside
Original Note:
Today's Communication / Plan
-
Continue treatment of flu/pneumonia
Wean supplemental oxygen as able
Transition short acting Cardizem to Cardizem CD and follow heart rate control
Consider addition of antiarrhythmic drug therapy as paroxysmal
Continue Eliquis
Impression / Plan
-
Primary Perinatal Breastfeeding Assistant: none prior to admission
Assessment:
Presentation with SOB/cough/fever
Acute Influenza A +
Sepsis
PNA
TAYLOR
Paroxysmal atrial flutter/atrial fibrillation, new diagnosis of unclear duration, with ~5 second conversion pause
Elevated troponin, suspect nonischemic myocardial injury secondary to above
HTN
HLD
Ongoing tobacco use (1 cigar daily)
Obesity
ECHO 10/08/24: EF 50%, mild concentric LVH, no significant valvular disease
Plan:
-Patient presented with shortness of breath, cough, fever and has tested positive for influenza A. Also has evidence of pneumonia by chest CT.
-Remains with wheezing on examination. Continue abx, tamiflu, steroids per primary service.
-wean supp O2 as able
-He continues with paroxysmal atrial fibrillation as well as atrial flutter. He did at 1 point have a approximately 5-second conversion pause on IV Cardizem, subsequently stopped. Since that time he has not had any significant conversion pauses.
He is presently on short acting Cardizem 60 mg 3 times daily. We will transition to Cardizem CD 120 mg twice daily. Avoiding beta-gabbie for now with active wheezing
-Would consider antiarrhythmic drug therapy as remains paroxysmal. Hopefully arrhythmia will resolve as patient improves from respiratory standpoint
-Continue Eliquis 5 mg twice daily, started this admission
-Echo with results as above, EF 50%. Results discussed with patient 10/09
-OP losartan on hold due to TAYLOR on presentation, now improved after IVF - Cr 1.1 on 10/08.
-proBNP 995. Follow volume status.
-trop peaked at 0.084 and trending down. no CP. would consider for OP ischemic evaluation once recovered
-Would consider for outpatient sleep study and pulmonary evaluation once recovered
-d/w nursing
Progress Note - Perinatal Breastfeeding Assistant
Subjective
Date of Service: October 09, 2024
Reports remains with wheezing at times, however overall breathing improving
Objective
Labs:
10/08/24 06:00
10/08/24 02:04
Labs
Hgb Cancelled 10/08/24 06:00
Hct Cancelled 10/08/24 06:00
Plt Count Cancelled 10/08/24 06:00
Sodium 136 mmol/L (135-145) 10/08/24 02:04
Potassium 4.6 mmol/L (3.5-5.1) 10/08/24 02:04
BUN 28 mg/dl (9-20) H 10/08/24 02:04
Creatinine 1.1 mg/dL (0.7-1.3) 10/08/24 02:04
Glucose 137 mg/dl (70-99) H 10/08/24 02:04
Troponins
10/07/24 10/07/24
12:02 14:46
Troponin I 0.084 H* 0.072 H*
Vital Signs and I&O:
Vital Signs
Temp Pulse Resp BP Pulse Ox
98.0 F 126 20 125/104 96
10/09/24 11:13 10/09/24 08:30 10/09/24 11:13 10/09/24 08:30 10/09/24 11:13
Vital Signs
Temp Pulse Resp BP Pulse Ox
98.0 F 126 20 125/104 96
10/09/24 11:13 10/09/24 08:30 10/09/24 11:13 10/09/24 08:30 10/09/24 11:13
Intake & Output
10/07/24 10/08/24 10/09/24 10/10/24
07:59 07:59 07:59 07:59
Intake Total 960 / 960 2480 / 2480 400 / 400
Output Total 800 / 800
Balance 160 / 160 2480 / 2480 400 / 400
Physical Exam
Physical Exam
GEN: No distress, awake, alert, oriented x3. On supplemental oxygen
HEENT: supple, anicteric, mmm, EOMI
LUNGS: Bilateral expiratory wheezing
CV: Irreg, S1/S2, no murmur
ABD: soft, BS+, NT/ND
EXT: No cyanosis, clubbing, edema
NEURO: Gross non-focal
SKIN: Warm, pink, dry. No rash
[2024-10-09] MEDS: ZITHROMAX INFUSION 250 IV (17:56)
[2024-10-09] MEDS: ROCEPHIN 1000 MG IV (17:56)
[2024-10-09] MEDS: STERILE WATER FOR INJECTION 10 ML IV (17:56)
[2024-10-09] MEDS: CARDIZEM CD 120 MG PO ×2 (19:18→20:40)
--- NOTE | 2024-10-09 19:44 | PTCARENOTE ---
Pt remains on oxygen at 3L with productive cough , KOVACS and shallow resps. Pt using IS hourly. Telemetry shows atrial fib at a rate of 100- 140 with brief bursts to 170 with activity. Cardizem CD to start tonight.
--- NOTE | 2024-10-09 20:00 | PTCARENOTE ---
received pt from [facility]. Walking rounds completed. Pt assessment completed in bed. Pt is AAOx4, no neuro deficits noted. Afib on monitor. HR 142, B/P 126/71. Pulses palpable, generalized trace edema. lungs coarse, diminished, productive cough. POX
98% on 3L I/S: 1999. NBS, abdomen round, non-tender to touch. Pt voiding clear, yellow urine in bathroom. R AC and L wrist PVA all intact and flush. Discussed plan of care with pt. Pt agrees with plan. Will continue to monitor pt needs.
--- NOTE | 2024-10-09 20:05 | PTCARENOTE ---
Pt HR in 160-180. Dr. Ken Nash notified via [employer] additional dose of medication administered (SEE MAR). Pt instructed to remain in bed and to ring for assistance to bathroom. Pt verbalized understanding. Will continue to monitor pt needs.
--- NOTE | 2024-10-09 23:02 | PTCARENOTE ---
VSS. Afib on monitor. HR 115, B/P: 126/71. Pm care provided. Pt resting in bed. Will continue to monitor pt needs.
[2024-10-10] VITALS (12 sets, daily range): BP systolic 128–154; BP diastolic 83–107
--- NOTE | 2024-10-10 04:02 | PTCARENOTE ---
VSS Pt in AFIB on monitor with occasional short pauses. . HR 90, B/P 128/91. Pt resting in bed. Will continue to monitor pt needs.
[2024-10-10] MEDS: XOPENEX 0.63 MG INHALANT SOLUTION INH ×3 (07:10→19:12)
[2024-10-10] MEDS: MUCINEX 600 MG PO ×2 (08:57→19:55)
[2024-10-10] MEDS: TAMIFLU 75 MG PO ×2 (08:57→19:55)
[2024-10-10] MEDS: CARDIZEM CD 120 MG PO (08:57)
[2024-10-10] MEDS: ELIQUIS 5 MG PO ×2 (08:58→19:55)
[2024-10-10] MEDS: DELTASONE 40 MG PO (08:58)
[2024-10-10] MEDS: CRESTOR 5 MG PO (08:58)
--- NOTE | 2024-10-10 09:34 | W.PN.HOSP.TC ---
Today's Communication/Plan
-
Monitor heart rate
Ambulatory pulse ox on room air
Continue antimicrobials
Assessment / Plan
Assessment / Plan
Gen-AAOx3, NAD
HEENT-NC, AT, anicteric, clear oral mm
Neck-supple
CV-reg, no M, +S1/S2
Lungs-wheezing improved
Abd-soft, NT, ND
Ext-no edema
Musculoskeletal-no cyanosis, clubbing
Skin-warm and dry
Neuro-grossly non-focal
Psych-calm, cooperative
Acute hypoxic respiratory insufficiency -due to acute influenza A infection, pneumonia. Currently stable on 3 L nasal cannula oxygen, wean down as able. Check ambulatory pulse ox on room air.
Sepsis - due to pneumonia, acute influenza infection. Hemodynamically improved with IV fluids. Blood cultures negative. Sepsis resolved.
Acute influenza A infection -continue Tamiflu, has received 6 out of 10 doses. Clinically appears to have acute COPD exacerbation. Does not formally have a diagnosis of COPD. Wheezing improved. With his smoking history I suspect he has
underlying undiagnosed emphysema. Will need outpatient evaluation and follow-up with pulmonary. Continue prednisone. Continue inhalers. Continue Mucinex, Acapella, incentive spirometry.
Community-acquired pneumonia -CT chest shows left lower lobe infiltrate. Chest x-ray without findings. Urinary antigens negative. Continue antibiotics.
Acute kidney injury - suspect due to anorexia related volume depletion. Creatinine improved.
Rapid atrial fibrillation -new diagnosis and likely triggered by acute illness. Heart rate elevated at times. Cardizem dose increased to 120 mg twice daily by cardiology. Continue Eliquis.
Troponin elevation -likely acute nonischemic myocardial injury due to acute illness. Troponin trending down.
Essential hypertension -blood pressure improving. Hold losartan.
Hyperlipidemia -on rosuvastatin.
Tobacco dependence
Obesity due to excess calories
Full code
Anticipated Discharge: Within 24 hours
Subjective/Interval History
-
Date of Service: October 10, 2024
Patient seen and examined. Feeling better overall. No complaints.
Objective Data
-
Vital Signs:
Vital Signs
Temp Pulse Resp BP Pulse Ox
97.8 F 108 16 141/93 96
10/10/24 06:49 10/10/24 08:57 10/10/24 07:13 10/10/24 08:57 10/10/24 07:13
I&O
10/09/24 10/10/24 10/11/24
06:59 06:59 06:59
Intake Total 2480 / 2480 650 / 650
Balance 2480 / 2480 650 / 650
Review of Systems
-
History Source: Patient
All other systems: Reviewed and negative
--- NOTE | 2024-10-10 10:29 | W.PN.CARDCBS ---
Addendum entered and electronically signed by Thong Steven MD 10/10/24 11:17:
I saw and examined the patient.
The Compressor Operator's note was reviewed and I agree with the note.
Comment: Briefly, 64-year-old man presenting with influenza found to have atrial fibrillation with rapid ventricular response
Remains in atrial fibrillation
Heart rates are elevated at times, goal HR less than 110 bpm
Increase diltiazem
Avoiding beta-gabbie due to hypoxia/pneumonia/COPD
Add amiodarone for additional rate control
Continue Eliquis for cardioembolic prophylaxis
Rest per [facility]
Original Note:
Today's Communication / Plan
-
Initiate amiodarone 400 mg twice daily
Repeat EKG in a.m.
Continue Cardizem CD, Eliquis
Treatment of influenza/pneumonia/COPD per primary service
Will need outpatient ischemic evaluation and sleep study
Impression / Plan
-
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
Assessment:
Presentation with SOB/cough/fever
Acute Influenza A +
Sepsis
PNA
TAYLOR
Paroxysmal atrial flutter/atrial fibrillation, new diagnosis of unclear duration, with ~5 second conversion pause
Elevated troponin, suspect nonischemic myocardial injury secondary to above
HTN
HLD
Ongoing tobacco use (1 cigar daily)
Obesity
ECHO 10/08/24: EF 50%, mild concentric LVH, no significant valvular disease
Plan:
-Patient presented with shortness of breath, cough, fever and has tested positive for influenza A. Also has evidence of pneumonia by chest CT.
-breathing improving. Continue antibiotics, Tamiflu, steroids
-Weaning supplemental O2
-He has had paroxysmal afib and atrial flutter. He did at 1 point have a approximately 5-second conversion pause on IV Cardizem, subsequently stopped. Since that time he has not had any significant conversion pauses. Remains in atrial fibrillation
with suboptimal rate control on Cardizem CD 120 mg twice daily. Avoiding beta-gabbie for now with active wheezing.
-Will initiate amiodarone 400 mg twice daily. Repeat EKG in a.m. to follow QTc
-Hopefully arrhythmia will resolve as patient improves from respiratory standpoint
-Continue Eliquis, started this admission
-Echo with results as above, EF 50%. Results discussed with patient 10/09
-OP losartan on hold due to TAYLOR on presentation, now improved after IVF - Cr 1.1 on 10/08.
-proBNP 995. Follow volume status.
-trop peaked at 0.084 and trending down. no CP. would consider for OP ischemic evaluation once recovered
-Would consider for outpatient sleep study and pulmonary evaluation once recovered
-d/w nursing
Progress Note - Spray Gun Repairer
Subjective
Date of Service: October 10, 2024
Reports breathing continues to improve
Objective
Labs:
10/08/24 06:00
10/08/24 02:04
Labs
Hgb Cancelled 10/08/24 06:00
Hct Cancelled 10/08/24 06:00
Plt Count Cancelled 10/08/24 06:00
Sodium 136 mmol/L (135-145) 10/08/24 02:04
Potassium 4.6 mmol/L (3.5-5.1) 10/08/24 02:04
BUN 28 mg/dl (9-20) H 10/08/24 02:04
Creatinine 1.1 mg/dL (0.7-1.3) 10/08/24 02:04
Glucose 137 mg/dl (70-99) H 10/08/24 02:04
Troponins
10/07/24 10/07/24
12:02 14:46
Troponin I 0.084 H* 0.072 H*
Vital Signs and I&O:
Vital Signs
Temp Pulse Resp BP Pulse Ox
97.8 F 112 16 141/93 97
10/10/24 06:49 10/10/24 09:30 10/10/24 07:13 10/10/24 08:57 10/10/24 08:55
Vital Signs
Temp Pulse Resp BP Pulse Ox
97.8 F 112 16 141/93 97
10/10/24 06:49 10/10/24 09:30 10/10/24 07:13 10/10/24 08:57 10/10/24 08:55
Intake & Output
10/08/24 10/09/24 10/10/24 10/11/24
07:59 07:59 07:59 07:59
Intake Total 960 / 960 2480 / 2480 650 / 650
Output Total 800 / 800
Balance 160 / 160 2480 / 2480 650 / 650
Physical Exam
Physical Exam
GEN: No distress, awake, alert, oriented x3. On supplemental oxygen
HEENT: supple, anicteric, mmm, EOMI
LUNGS: Scattered mild expiratory wheezes
CV: Irreg, S1/S2, no murmur
ABD: soft, BS+, NT/ND
EXT: No cyanosis, clubbing, edema
NEURO: Gross non-focal
SKIN: Warm, pink, dry. No rash
[2024-10-10] MEDS: PACERONE 400 MG PO ×2 (10:58→19:55)
--- NOTE | 2024-10-10 11:24 | PTCARENOTE ---
received patient this am on 3 LNC, o2 sat 98%, decreased o2 to 2 LNC, o2 sat 97%, decreased o2 to 1 LNC, o2 sat 95%. respiratory in room will ambulated patient on RA and document. lung parsons coarse throughout. monitor shows Afib, VSS. patient
remains on droplet precautions. at bedside.
[2024-10-10] MEDS: ZITHROMAX INFUSION 250 IV (17:53)
[2024-10-10] MEDS: ROCEPHIN 1000 MG IV (17:57)
[2024-10-10] MEDS: STERILE WATER FOR INJECTION 10 ML IV (17:57)
[2024-10-10] MEDS: FLUSH (NSS) 1 FLUSH IV (17:58)
[2024-10-10] MEDS: CARDIZEM CD 240 MG PO (19:55)
--- NOTE | 2024-10-10 23:24 | PTCARENOTE ---
pt received at change of shift, pt seen and assessed in room. pt AOx3, tele reading Afib in the 80s. no complaints of pain at this time. pt satting 96% on RA. productive cough still present. ambulating independently in room. this RN discussed POC,
pt. verbalizes understanding. call velazquez within reach, continuing to monitor at this time.
[2024-10-11 03:04] VITALS: BP 136/87
[2024-10-11 07:57] VITALS: BP 153/95
[2024-10-11] MEDS: XOPENEX 0.63 MG INHALANT SOLUTION INH (08:28)
[2024-10-11] MEDS: DELTASONE 40 MG PO (08:32)
[2024-10-11] MEDS: ELIQUIS 5 MG PO (08:32)
[2024-10-11] MEDS: MUCINEX 600 MG PO (08:32)
[2024-10-11] MEDS: TAMIFLU 75 MG PO (08:32)
[2024-10-11] MEDS: CARDIZEM CD 240 MG PO (08:32)
[2024-10-11] MEDS: CRESTOR 5 MG PO (08:32)
[2024-10-11] MEDS: PACERONE 400 MG PO (08:32)
--- NOTE | 2024-10-11 08:53 | W.PN.HOSP.TC ---
Today's Communication/Plan
-
Continue current care
Taper prednisone
Assessment / Plan
Assessment / Plan
Gen-AAOx3, NAD
HEENT-NC, AT, anicteric, clear oral mm
Neck-supple
CV-reg, no M, +S1/S2
Lungs-wheezing improved
Abd-soft, NT, ND
Ext-no edema
Musculoskeletal-no cyanosis, clubbing
Skin-warm and dry
Neuro-grossly non-focal
Psych-calm, cooperative
Acute hypoxic respiratory insufficiency -due to acute influenza A infection, pneumonia. Oxygenation improved, now on room air. Ambulated on room air without oxygen without desaturation.
Sepsis - due to pneumonia, acute influenza infection. Hemodynamically improved with IV fluids. Blood cultures negative. Sepsis resolved.
Acute influenza A infection -continue Tamiflu, has received 8 out of 10 doses. Clinically appears to have acute COPD exacerbation. Does not formally have a diagnosis of COPD. Wheezing improved. With his smoking history I suspect he has
underlying undiagnosed emphysema. Will need outpatient evaluation and follow-up with pulmonary. Start prednisone taper. Continue inhalers. Continue Mucinex, Acapella, incentive spirometry.
Community-acquired pneumonia -CT chest shows left lower lobe infiltrate. Chest x-ray without findings. Urinary antigens negative. Day 5 of antibiotics today.
Acute kidney injury - suspect due to anorexia related volume depletion. Creatinine improved.
Rapid atrial fibrillation -new diagnosis and likely triggered by acute illness. Heart rate elevated at times. Cardizem dose increased to 240 mg twice daily by cardiology. Amiodarone loading. Continue Eliquis.
Troponin elevation -likely acute nonischemic myocardial injury due to acute illness. Troponin trending down.
Essential hypertension -blood pressure elevated last night, improved this morning. Hold losartan.
Hyperlipidemia -on rosuvastatin.
Tobacco dependence
Obesity due to excess calories
Full code
Dispo -can discharge when cleared by cardiology.
Anticipated Discharge: Within 24 hours
Subjective/Interval History
-
Date of Service: October 11, 2024
Patient seen and examined. No complaints. Feeling better.
Objective Data
-
Vital Signs:
Vital Signs
Temp Pulse Resp BP Pulse Ox
98.6 F 103 20 153/95 93
10/11/24 07:55 10/11/24 08:32 10/11/24 08:30 10/11/24 08:32 10/11/24 08:30
I&O
10/10/24 10/11/24 10/12/24
06:59 06:59 06:59
Intake Total 650 / 650 400 / 400
Balance 650 / 650 400 / 400
Review of Systems
-
History Source: Patient
All other systems: Reviewed and negative
--- NOTE | 2024-10-11 11:10 | W.PN.CARDCBS ---
Addendum entered and electronically signed by Thong Steven MD 10/11/24 13:17:
I saw and examined the patient.
The Equipment Maint Tech's note was reviewed and I agree with the note.
Comment: Briefly, 64-year-old man presenting with influenza A found to have atrial fibrillation with rapid ventricular response
Heart rates better controlled on Cardizem and amiodarone, would continue on discharge
Eliquis for cardioembolic prophylaxis
At follow-up can discuss cardioversion if he remains in A-fib
Stable for discharge from my perspective
Outpatient follow-up has been arranged
Original Note:
Today's Communication / Plan
-
amiodarone 400mg BID x 2 weeks then decrease to 200mg daily
cardizem cd 240mg BID
eliquis 5mg BID
consider for OP CV if remains in afib
OP cardiac follow up arranged
consider for OP pulm eval, sleep study, and ischemic eval as OP once recovered
ok for DC
Impression / Plan
-
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
Assessment:
Presentation with SOB/cough/fever
Acute Influenza A +
Sepsis
PNA
TAYLOR
Paroxysmal atrial flutter/atrial fibrillation, new diagnosis of unclear duration, with ~5 second conversion pause
Elevated troponin, suspect nonischemic myocardial injury secondary to above
HTN
HLD
Ongoing tobacco use (1 cigar daily)
Obesity
ECHO 10/08/24: EF 50%, mild concentric LVH, no significant valvular disease
Plan:
-He continues to improve from flu/pneumonia standpoint. Continue treatment per primary service. Now off supplemental oxygen
-Remains in atrial fibrillation with controlled ventricular response. Continue Cardizem CD to 40 mg twice daily. Avoiding beta-gabbie for now with active wheezing. Also started on amiodarone. Plan to continue 400 mg twice daily for 2 weeks then
decrease to 200 mg daily. Hopefully arrhythmia will resolve as patient improves from respiratory standpoint
-Continue Eliquis, started this admission
-If remains in atrial fibrillation at cardiology office follow-up would consider for outpatient cardioversion
-Echo with results as above, EF 50%.
-Continue to hold outpatient losartan on DC. can reevaluate need as OP
-proBNP 995. Follow volume status. Encourage patient to follow daily weights while in atrial fibrillation
-trop peaked at 0.084 and trending down. no CP. would consider for OP ischemic evaluation once recovered
-Would consider for outpatient sleep study and pulmonary evaluation once recovered
-Okay for discharge to home today from cardiac standpoint
-Outpatient cardiac follow-up arranged
-d/w nursing
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
Subjective
Date of Service: October 11, 2024
Feeling better from breathing standpoint. Denies palpitations
Objective
Labs:
10/08/24 06:00
10/08/24 02:04
Labs
Hgb Cancelled 10/08/24 06:00
Hct Cancelled 10/08/24 06:00
Plt Count Cancelled 10/08/24 06:00
Sodium 136 mmol/L (135-145) 10/08/24 02:04
Potassium 4.6 mmol/L (3.5-5.1) 10/08/24 02:04
BUN 28 mg/dl (9-20) H 10/08/24 02:04
Creatinine 1.1 mg/dL (0.7-1.3) 10/08/24 02:04
Glucose 137 mg/dl (70-99) H 10/08/24 02:04
Vital Signs and I&O:
Vital Signs
Temp Pulse Resp BP Pulse Ox
98.6 F 103 20 153/95 93
10/11/24 07:55 10/11/24 08:32 10/11/24 08:30 10/11/24 08:32 10/11/24 08:30
Vital Signs
Temp Pulse Resp BP Pulse Ox
98.6 F 103 20 153/95 93
10/11/24 07:55 10/11/24 08:32 10/11/24 08:30 10/11/24 08:32 10/11/24 08:30
Intake & Output
10/09/24 10/10/24 10/11/24 10/12/24
07:59 07:59 07:59 07:59
Intake Total 2480 / 2480 650 / 650 400 / 400
Balance 2480 / 2480 650 / 650 400 / 400
Physical Exam
Physical Exam
GEN: No distress, awake, alert, oriented x3. sitting in chair
HEENT: supple, anicteric, mmm, EOMI
LUNGS: mild exp wheezes on R
CV: Irreg, S1/S2, no murmur
ABD: soft, BS+, NT/ND
EXT: No cyanosis, clubbing, edema
NEURO: Gross non-focal
SKIN: Warm, pink, dry. No rash
[2024-10-11 12:08] VITALS: BP 155/92
[2024-10-11 12:10] VITALS: BP 133/84
--- NOTE | 2024-10-11 12:10 | W.DS.TRANS ---
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
-
Discharge Instructions:
Discharge Diagnosis/Procedures Sepsis, pneumonia, Influenza A infection, rapid
atrial fibrillation
Diet Regular
Activity As tolerated
Driving Restrictions As prior to admission
Bathing Restrictions None
Specialty Instructions Weigh Daily
Instructions:
Stand-Alone Forms:
Changes to Home Medications: Yes
Discharge Medications:
DC Medications w/original date entered in [facility] [employer] [facility]
omega 6-[id number]-fish oil 1,000 mg (120 mg-180 mg) capsule (Fish Oil) 1 cap PO BID Supplement 10/07/24
rosuvastatin 5 mg tablet 5 mg PO DAILY High Cholesterol 10/07/24
albuterol sulfate 90 mcg/actuation aerosol inhaler 2 puff inhalation 6XD PRN shortness of breath or wheezing #8.5 grams 10/11/24
amiodarone 200 mg tablet 200 mg PO DAILY #90 tabs 10/11/24
amoxicillin 875 mg-potassium clavulanate 125 mg tablet 1 tab PO BID #6 tabs 10/11/24
apixaban 5 mg tablet (Eliquis) 5 mg PO BID #60 tabs 10/11/24
diltiazem HCl 240 mg capsule,extended release 24 hr 240 mg PO BID #60 caps 10/11/24
oseltamivir 75 mg capsule 75 mg PO BID #2 caps 10/11/24
prednisone 10 mg tablet 10 mg PO DIRECTED #12 tabs 10/11/24
Home Medication Changes
Stop losartan
Pending Results: No
== END 2024-10-11 13:44 | disposition home or self-care (01) | DRG 871 ==
LOC: IVU 17:21
PROVIDERS: Physician Assistant; ADMITTING PHYSICIAN Hospitalist; CONSULT PHYSICIAN Internal Medicine Cardiovascular Disease; EMERGENCY PHYSICIAN Student in an Organized Health Care Education/Training Program; FAMILY PHYSICIAN Family Medicine
DX: A41.89 Other specified sepsis (principal); J10.08 Influenza due to other identified influenza virus with other specified pneumonia; N17.9 Acute kidney failure, unspecified; J44.0 Chronic obstructive pulmonary disease with (acute) lower respiratory infection; J44.1 Chronic obstructive pulmonary disease with (acute) exacerbation; I5A Non-ischemic myocardial injury (non-traumatic); I48.92 Unspecified atrial flutter; I47.19 Other supraventricular tachycardia; E66.09 Other obesity due to excess calories; F17.290 Nicotine dependence, other tobacco product, uncomplicated; E78.5 Hyperlipidemia, unspecified; I10 Essential (primary) hypertension; J43.9 Emphysema, unspecified; R06.89 Other abnormalities of breathing; R09.02 Hypoxemia; I48.0 Paroxysmal atrial fibrillation; Z20.822 Contact with and (suspected) exposure to COVID-19; Z79.899 Other long term (current) drug therapy; Z68.33 Body mass index [BMI] 33.0-33.9, adult
CPT/HCPCS: 71046; 71275; 80053; 83735; 83880; 84443; 84484; 85025; 85379; 87040; 87449; 87502; 87811; 87899; 93005; 93306; 94640; 96361; 96365; 99285; 99406; J0153; Q9967

== ENCOUNTER → 2024-11-25 08:07 | Outpatient (REF) | payer MEDICARE, SELFPAY | LOC: RCS 08:07 | PROVIDERS: ATTENDING PHYSICIAN Physician Assistant; FAMILY PHYSICIAN Family Medicine | DX: I48.0 Paroxysmal atrial fibrillation (principal); I10 Essential (primary) hypertension; E78.2 Mixed hyperlipidemia; Z72.0 Tobacco use | CPT/HCPCS: 93017; 93350 ==